=== PATIENT | male | born 1985 | race Hispanic/Latino ===

== ENCOUNTER 2021-01-11 00:24 | Emergency (ER) | payer SELFPAY ==
--- NOTE | ~2021-01-11 | XR_ITS ---
EXAMINATION: XR hand RT min 3V DATE: 01/11/2021 01:05 INDICATION: Dog bite with laceration between the first and second digits TECHNIQUE: Posteroanterior, oblique and lateral views of the right hand were obtained. COMPARISON: None. FINDINGS: Alignment is normal. No fracture. Joint spaces are normal. There is some soft tissue gas surrounding the right first metacarpophalangeal joint consistent with provided history of laceration. No radiopaq ue foreign bodies. IMPRESSION: 1. Soft tissue gas surrounding the right first metacarpophalangeal joint consistent with provided his tory of laceration. No osseous abnormality. Reviewed, dictated and finalized at location A. IMPRESSION: 1. Soft tissue gas surrounding the right first metacarpophalangeal joint consis tent with provided history of laceration. No osseous abnormality.
[2021-01-11 00:29] VITALS: BP 139/89; PULSE 103; RESP 16; TEMP 36.6; O2SAT 97
[2021-01-11 00:34] VITALS: BP 176/106; PULSE 90; RESP 20; O2SAT 96
--- NOTE | 2021-01-11 00:39 | ED.GENADULT ---
HPI - General Adult General Chief complaint: Animal Bite Stated complaint: dog bite Time Seen by Provider: 01/11/21 00:30 History of Present Illness HPI narrative: Patient 36-year-old gentleman who presents the emergency department chief complaint of dog bite. Patient reports he was playing with his mother's husky and the dog accidentally bit him in the right hand in the webspace between the first and second digit. The patient reports it hurts whenever he moves it reports there is a defect in the soft tissue in that area patient denies numbness or tingling denies motor deficit. Patient states he is unsure of his last tetanus shot patient denies any other injury. Related Data Allergies Allergy/AdvReac Type Severity Reaction Status Date / Time No Known Allergies Allergy Unverified 08/22/16 08:50 Review of Systems Review of Systems: Narrative: A 10 system review of systems was completed on the patient and is negative except for what is stated in the HPI. Nursing and ancillary documentation was reviewed. Exam Narrative: Exam Narrative: GENERAL: Well-appearing, well-nourished, and in no acute distress. HEAD: Normocephalic, atraumatic. EYES: PERRLA and EOMI. ENT: Nares clear, no rhinorrhea or epistaxis. Mucous membranes moist. NECK: Supple. CHEST: Clear to auscultation. No respiratory distress. HEART: Regular rate and rhythm. No murmur heard. Normal peripheral pulses. ABDOMEN: Soft, nontender, nondistended, normal active bowel sounds. EXTREMITIES: Normal range of motion. No edema. SKIN: Warm, dry, no rash. There is a laceration in the webspace between the first and second digit NEURO: No focal deficits. Alert and oriented x3. PSYCH: Normal mood and affect. Course Vital Signs Vital signs: Vital Signs Temperature 36.6 C 01/11/21 00:29 Pulse Rate 103 H 01/11/21 00:29 Respiratory Rate 16 01/11/21 00:29 Blood Pressure 139/89 01/11/21 00:29 Pulse Oximetry 97 01/11/21 00:29 Temperature 36.6 C 01/11/21 00:29 Pulse Rate 90 01/11/21 00:34 Respiratory Rate 20 01/11/21 00:34 Blood Pressure 176/106 H 01/11/21 00:34 Pulse Oximetry 96 01/11/21 00:34 Procedures Laceration Laceration 1: Date: 01/11/21 Time: 02:10 Site: hand Side (If applicable): right Size (cm): 6 Description: stellate and flap Depth: simple, single layer Local Anesthetic: lidocaine 1% Amount of anesthesia used (mL): 10 Pre-repair: wound explored and irrigated ====== Skin Level ====== Skin layer closed with: nylon Size (cm): 4-0 Number of sutures: 11 Technique: simple, interrupted ====== Subcutaneous Layer ====== ====== Muscle Layer ====== ====== Tendon Layer ====== Medical Decision Making Vital Signs Vital Signs: Vital Signs Temperature 36.6 C 01/11/21 00:29 Pulse Rate 103 H 01/11/21 00:29 Respiratory Rate 16 01/11/21 00:29 Blood Pressure 139/89 01/11/21 00:29 Pulse Oximetry 97 01/11/21 00:29 Temperature 36.6 C 01/11/21 00:29 Pulse Rate 90 01/11/21 00:34 Respiratory Rate 20 01/11/21 00:34 Blood Pressure 176/106 H 01/11/21 00:34 Pulse Oximetry 96 01/11/21 00:34 Discharge Plan Discharge Clinical Impression: Bite by animal, Hand laceration, Dog bite Patient Disposition: Home, Self-Care Condition: Stable Instructions: Antibiotic Form, Animal Bite (ED), Care For Your Stitches (ED), Laceration (ED) Additional Instructions: Please have the sutures removed in 10 days Patient Language: Czech Prescriptions: New amoxicillin-pot clavulanate [Augmentin] 875-125 mg tablet 1 tablet PO Q12H Qty: 20 RF: 0 Follow-up/Referrals: PHYSICIAN,[facility] [employer] [employer] [Primary Care Provider] - Dwaine Naranjo MD [Physician] - Stand Alone Forms: Work/School Release IP Time of Disposition: 02:13
[2021-01-11] MEDS: TETANUS,DIPHTHERIA,AC PERTUSSIS ADULT (0.5 ML) BOOSTRIX IM (00:41)
[2021-01-11] MEDS: AMOXICILLIN/CLAVULANATE K 875-125 MG TAB 1 TABLET PO (01:24)
[2021-01-11 02:30] VITALS: BP 144/79; PULSE 90; RESP 20; O2SAT 97
== END 2021-01-11 02:34 | disposition home or self-care (01) ==
PROVIDERS: Emergency Provider Emergency Medicine
DX: S61.411A Laceration without foreign body of right hand, initial encounter (principal); Z23 Encounter for immunization; W54.0XXA Bitten by dog, initial encounter
CPT/HCPCS: 12002; 73130; 90471; 90715; 99283; A9270